=== PATIENT | male | born 1955 | race Two or more races ===

== ENCOUNTER 2024-07-05 12:45 | Inpatient (IN) | payer OTHER ==
[~2024-07-05] VITALS: Ht 185.4 cm; Wt 79.4 kg
[2024-07-05] MEDS ORDERED: TAMS0.4C PO (15:06)
[2024-07-05] MEDS ORDERED: LIPITOR40 M1 PO (15:06)
[2024-07-05] MEDS ORDERED: METFORMIN HCL500 M3 PO (15:07)
[2024-07-05 15:08] VITALS: BP 143/84
[2024-07-05] MEDS ORDERED: NORVASC5 MG PO (15:08)
[2024-07-05] MEDS ORDERED: CHILDREN'S ASPI81 MG PO (15:08)
[2024-07-05] MEDS ORDERED: JARDIANCE25 MG PO (15:08)
[2024-07-05 15:42] LABS: RH POSITIVE
[2024-07-11] MEDS ORDERED: BUPIVACAINE HCL/MPF 0.5% 30ML VIAL ONE (07:32)
[2024-07-11] MEDS ORDERED: ENOXAPARIN SODIUM 40 MG/0.4 ML SYRINGE SUBCUTANEO ONE (07:32)
[2024-07-11] MEDS ORDERED: CEFAZOLIN SODIUM 1,000 MG VIAL ONE ×2 (07:32→12:29)
[2024-07-11] MEDS ORDERED: HEMOSTATIC MATRIX 1 KIT KIT TOP ONE (10:19)
[2024-07-11] MEDS ORDERED: SURGIFLO APPLICATOR 1 EACH APPL TOP ONE (10:20)
[2024-07-11] MEDS ORDERED: SUGAMMADEX SODIUM 200 MG/2 ML VIAL IV ONE (11:14)
[2024-07-11] MEDS ORDERED: MORPHINE SULFATE 4 MG/ML CARTRIDGE IV PRN (11:15)
[2024-07-11] MEDS ORDERED: ONDANSETRON HCL 2 MG/ML VIAL IV PRN (11:15)
[2024-07-11] MEDS ORDERED: RINGERS SOLUTION,LACTATED 1,000 ML IV SCH (11:15)
[2024-07-11] MEDS ORDERED: OxyCODONE HCL/APAP UD (PERCOCET) PO PRN (11:15)
[2024-07-11] MEDS ORDERED: INSULIN LISPRO 1,000 UNIT/10 ML UNITS SUBCUTANEO PRN (11:30)
[2024-07-11] MEDS ORDERED: DEXTROSE 50 % IN WATER 0.5 G/ML DISP.SYRIN IV PRN (11:30)
[2024-07-11] MEDS ORDERED: CEFAZOLIN SODIUM 1,000 MG VIAL IV SCH (12:00)
[2024-07-11] MEDS ORDERED: MORPHINE SULFATE 4 MG/ML VIAL IV ONE (13:00)
[2024-07-11] MEDS ORDERED: INSULIN LISPRO 1,000 UNIT/10 ML UNITS SUBCUTANEO ONE (13:52)
[2024-07-11 14:50] VITALS: BP 148/83; O2SAT 94
[2024-07-11 16:00] VITALS: BP 146/88
[2024-07-11] MEDS ORDERED: GABAPENTIN 300 MG CAPSULE PO SCH (17:00)
[2024-07-11] MEDS ORDERED: POLYETHYLENE GLYCOL 3350 17 GM BLIST.PACK PO SCH (17:00)
[2024-07-11] MEDS ORDERED: FAMOTIDINE/PF 20 MG/2 ML VIAL IV SCH (21:00)
[2024-07-12 01:52] VITALS: BP 114/76; O2SAT 96
[2024-07-12 06:59] LABS: HEMATOCRIT 34.1 % (39.0-48.0); HEMOGLOBIN 11.7 g/dL (13-16.00); MEAN CELL VOLUME 92.3 fL (80.0-100.00); MEAN CORPUSCULAR HEMOGLOBIN 31.7 pg (27.00-32.0); MEAN CORPUSCULAR HGB CONC 34.3 g/dl (32.0-36.0); PLATELET COUNT 238 K/uL (150-450); RED BLOOD COUNT 3.69 M/uL (4.00-6.00); RED CELL DISTRIBUTION WIDTH 13.6 % (11.5-14.5)
[2024-07-12 07:37] LABS: ALBUMIN 2.6 gm/dL (3.4-5.0); CALCIUM 8.5 mg/dL (8.5-10.1); CREATININE SERUM 0.83 mg/dL (0.70-1.30); GFR 92.13; POTASSIUM 4.1 mEq/L (3.5-5.1)
[2024-07-12] MEDS ORDERED: ENOXAPARIN SODIUM 40 MG/0.4 ML SYRINGE SUBCUTANEO SCH (09:00)
[2024-07-12] MEDS ORDERED: AMLODIPINE BESYLATE 5 MG TABLET PO SCH (09:00)
== END 2024-07-12 12:09 | disposition home or self-care (01) | DRG 708 ==
LOC: SURG 07-11 05:30 → O/R 07-11 05:30 → SURH 07-11 12:30 → OB/GYN 07-11 12:45 → SURH 07-11 12:45 → SURG 07-11 14:15
PROVIDERS: ADMIT Urology; ATTEND Urology
PROC: 8E0W4CZ Robotic Assisted Procedure of Trunk Region, Percutaneous Endoscopic Approach (ICD-10-PCS; 2024-07-11)
PROC: 0VT04ZZ Resection of Prostate, Percutaneous Endoscopic Approach (ICD-10-PCS; principal; 2024-07-11 12:30)
DX: C61 Malignant neoplasm of prostate (principal)
CPT/HCPCS: 55866; S2900